=== PATIENT | male | born 1965 | race Caucasian/White ===

== ENCOUNTER 2017-11-15 06:57 | Observation (INO) | payer OTHER ==
[~2017-11-15] VITALS: Ht 177.8 cm; Wt 90.7 kg
--- NOTE | 2017-11-15 07:20 | ED GENERAL ADULT ---
See Addendum History of Present Illness General Chief Complaint: Abdominal Pain/Flank Pain Stated Complaint: PER PT IN EXTERME ABD PAIN ? KIDNEY STONE NO HX Source: patient Exam Limitations: clinical condition Vital Signs & Intake/Output Vital Signs & Intake/Output Vital Signs Date Time Temp Pulse Resp B/P B/P Pulse O2 O2 Flow FiO2 Mean Ox Delivery Rate 11/15 1033 97.5 73 20 180/105 96 Room Air 11/15 0837 98.0 95 20 164/104 95 Room Air 11/15 0726 194/118 11/15 0715 98.0 74 20 198/111 Room Air Allergies Coded Allergies: No Known Allergies (11/15/17) Reconcile Medications No Known Home Medications Triage Note: PT TO ED C/O SUDDEN ONSET OF LOWER ABD PAIN, TESTICLE PAIN AND LOW BACK PAIN SINCE THIS AM. PT PALE, DIAPHORETIC, WRITHING IN PAIN. DR GUTIERREZ IN FOR EVAL. Triage Nurses Notes Reviewed? yes HPI: Patient is a 52-year-old male with no significant past medical or surgical history who presents today with severe and acute onset left-sided flank pain. Upon my initial encounter the patient is writhing around on the hospital [facility], unable to find a position of comfort, clearly in severe distress. He indicates his left CVA region as the area of worst pain, and reports that it radiates around in a ureteral distribution toward the left lower quadrant and into the bilateral testicles, which he feels are "being ripped off." He denies any history of ureterolithiasis, or any known aortic disease. Past History Travel History Traveled to [place] past 21 day No Medical History Any Pertinent Medical History? none Surgical History Surgical History: none Psychosocial History What is your primary language [place] Island[place] Tobacco Use: Never used ETOH Use: denies use Illicit Drug Use: denies illicit drug use Family History Hx Contributory? No Review of Systems Review of Systems Constitutional: Reports: see HPI. EENTM: Reports: no symptoms. Respiratory: Reports: no symptoms. Cardiovascular: Reports: no symptoms. GI: Reports: abdominal pain. Genitourinary: Reports: no symptoms. Musculoskeletal: Reports: back pain. Skin: Reports: no symptoms. Neurological/Psychological: Reports: no symptoms. Hematologic/Endocrine: Reports: no symptoms. Immunologic/Allergic: Reports: no symptoms. All Other Systems: Reviewed and Negative Physical Exam Physical Exam General Appearance: well developed/nourished, alert, awake, severe distress Comments: HEENT: Inspection of the head reveals a normocephalic cranium with no signs of trauma. Ophtho: Extraocular muscles are intact and pupils are equal and reactive to light bilaterally with no afferent pupillary defect. The sclera are noninjected , and there is no obvious discharge. Neck: The trachea is midline, there is no obvious asymmetry or mass over the thyroid, and there is no midline cervical spine tenderness Respiratory: The lungs are clear and equal to auscultation bilaterally without wheezes, rales, or rhonchi. The patient exhibits no signs of labored breathing. Cardiac: Regular rhythm and non-tachycardic without appreciable murmurs on auscultation. No obvious JVD. GI: Abdominal examination reveals severe left CVA region tenderness radiating around in a ureteral distribution toward the left lower quadrant. There is negative Johnson's sign, negative McBurney's point tenderness, negative Sharon sign, negative Duncan-Ramirez sign, and no signs of peritonitis whatsoever on percussion or deep palpation. The skin is intact with no sign of trauma or infection. Back: Left-sided CVA region pain. : Normal external male genitalia, but with subjective sensation of severe testicular pain, left greater than right. There is only mild pain on direct palpation of the left testicle, without transverse lie, scrotal erythema, or other visible abnormality. Neuro: The patient is oriented to person, place, time, and situation, with no obvious focal motor deficits. There were no sensory deficits, and the patient exhibit purposeful movement of all 4 extremities. Cranial nerves II through XII are intact, and gait is normal. Behavioral: Severely anxious regarding his symptoms, unable to find position of comfort. Dermatologic: Dermatologic examination reveals no diffuse rashes or exanthems, no petechiae, no ecchymoses, and no other signs of erythema or infection. Core Measures ACS in differential dx? Yes CVA/TIA Diagnosis: No Sepsis Present: No Sepsis Focused Exam Completed? No Progress Differential Diagnoses I considered the following diagnoses in my evaluation of the patient: Ureterolithiasis, hydronephrosis, AAA, aortic dissection, intra-abdominal sepsis , bowel perforation, acute coronary syndrome, MS, among multiple other possible etiologies. Plan of Care: Orders Procedure Date/time Status Regular Diet 11/[address] in observation 11/15 120 Active ED Holding Orders 11/15 120 Active Code Status 11/15 120 Active EKG 11/15 0942 Active EKG 11/15 07 Active URINALYSIS 11/15 07 Complete COMPREHENSIVE METABOLIC PANEL 11/15 07 Complete CBC WITHOUT DIFFERENTIAL 11/16 707 Complete Laboratory Tests 11/15/17 1100: Urine Color YEL, Urine Clarity CLEAR, Urine pH 6.5, Ur Specific [place] 1.020, Urine Protein NEG, Urine Ketones NEG, Urine Nitrite NEG, Urine Bilirubin NEG, Urine Urobilinogen 0.2, Ur Leukocyte Esterase NEG, Ur Microscopic SEDIMENT EXAMINED, Urine RBC 1-3, Urine WBC 3-5 H, Ur Epithelial Cells OCCAS, Hyaline Casts RARE H, Urine Mucus FEW, Urine Hemoglobin TRACE-INTACT H, Urine Glucose NEG 11/15/17 0715: Anion Gap 15, Estimated GFR > 60, BUN/Creatinine Ratio 17.8, Glucose 133 H, Calcium 9.9, Total Bilirubin 0.5, AST 31, ALT 53, Alkaline Phosphatase 80, Total Protein 7.3, Albumin 4.4, Globulin 2.9, Albumin/Globulin Ratio 1.5, CBC w Diff NO MAN DIFF REQ, RBC 5.48, MCV 85.7, MCH 28.8, MCHC 33.5, RDW 14.0, MPV 8.8, Gran % 48.7, Lymphocytes % 39.6, Monocytes % 7.8, Eosinophils % 3.6, Basophils % 0.3, Absolute Granulocytes 5.0, Absolute Lymphocytes 4.1 H, Absolute Monocytes 0.8 H, Absolute Eosinophils 0.4, Absolute Basophils 0 Initial ED EKG: normal axis, normal intervals, normal p-waves, normal QRS complex, normal sinus rhythm, no ST T wave changes Comments: Patient presented with left sided flank pain which seemed consistent with ureterolithiasis. The patient had never had this diagnosis previously, we obtained a noncontrast CT which documented a small 1-2 mm left-sided UVJ stone as documented below. Unfortunately, his pain and nausea have been intractable throughout his multihour ED stay and discharge ultimately was not felt to be possible. Furthermore, he has had oliguria, only able to put out 15 mL of urine during his ED course, and bladder scan showed only 20 mL. IV fluid initiated. Patient will require IV fluids, repeat laboratory studies, and urology consultation. PATIENT: PARISA GUTIERREZ PRESENT AGE: 52 PATIENT ACCOUNT NO: [id number] : 64 LOCATION: [facility] ORDERING PHYSICIAN: Yuval Gutierrez DO SERVICE DATE: 11/15/17 EXAM TYPE: CAT - CT ABD & PELVIS W/O IV CONTRAS EXAMINATION: CT ABDOMEN AND PELVIS WITHOUT CONTRAST CLINICAL INFORMATION: Severe flank pain COMPARISON: None TECHNIQUE: Multidetector volumetric imaging was performed from the superior aspect of the liver through the pubic symphysis. Sagittal and coronal reformatted images were obtained on the technologist's workstation. DLP: 516 mGy-cm FINDINGS: LUNG BASES: The visualized lung bases are unremarkable. LIVER, GALLBLADDER, AND BILIARY TREE: The liver is normal in size, shape, and attenuation. No focal hepatic lesion or biliary ductal dilatation is present. The gallbladder is unremarkable with no evidence of radiopaque gallstones, gallbladder wall thickening, or obvious pericholecystic inflammatory changes. PANCREAS: Unremarkable. SPLEEN: Unremarkable. ADRENAL GLANDS: Unremarkable. KIDNEYS AND URETERS: There are a few punctate, 1 mm calculi in each kidney. There is mild left hydroureteronephrosis with a 1-2 mm calculus at the left ureterovesical junction. BLADDER: Unremarkable. GASTROINTESTINAL TRACT: Mild diverticulosis of the descending colon. No focal inflammatory process or obstruction. Normal appendix. ABDOMINAL WALL: No significant hernia is appreciated. LYMPH NODES: Normal. VASCULAR: Unremarkable. PELVIC VISCERA: Unremarkable. OSSEOUS STRUCTURES: Unremarkable. IMPRESSION: Punctate, 1-2 mm calculus at the left ureterovesical junction with minimal hydroureteronephrosis. There are a few tiny (1 mm) calculi in each kidney. Mild colonic diverticulosis. DICTATED BY: Yuval Wallace MD DATE/TIME DICTATED:11/15/17804 SOFTWARE DEVELOPER:REBECCA DATE/TIME TRANSCRIBED:11/15/17804 CONFIDENTIAL, DO NOT COPY WITHOUT APPROPRIATE AUTHORIZATION. <Electronically signed in Other Vendor System> SIGNED BY: Yuval Wallace MD 0820 Departure Departure Time of Disposition: 1203 Disposition: STILL A PATIENT Condition: Stable Clinical Impression Primary Impression: Kidney stone on left side Departure Forms: Customer Survey General Discharge Information Prescriptions: Current Visit Scripts No Known Home Medications Observation Note Spoke With: Sandra MARIA,Abdulkadir Physician Advisor Notified: LACEY GIBSON DO Place Patient In: Non-ED OBS Care Area Rationale for Observation: My rational for observation is as follows patient has a left-sided kidney stone which is expected to pass nonoperatively. However, his pain and nausea have been intractable and it has become clear that outpatient management is not possible. I prescribed him 5 separate dosages of narcotic medications well spaced, as well as a dosage of ketorolac, with antiemetics each time. I reassessment, the patient continues to retch and vomit even when attempting to sit up. His pain returns after each dosage. I feel he requires hospitalization for intractable pain and vomiting. Furthermore, he has made only 20 mL of urine on bladder scan and has been unable to urinate more than 15 mL. IV fluids and repeat laboratory studies needed to observe for possible acute kidney injury. Critical Care Note Critical Care Note Critical Care Time: non-applicable
[2017-11-15 07:32] LABS: ABSOLUTE BASOPHIL COUNT 0 /CUMM (0.0-0.2); ABSOLUTE EOSINOPHIL COUNT 0.4 /CUMM (0.0-0.7); ABSOLUTE LYMPH COUNT 4.1 /CUMM (1.2-3.4); ABSOLUTE MONOCYTE COUNT 0.8 /CUMM (0.10-0.60); BASOPHIL % 0.3 % (0.0-2.0); EOSINOPHIL % 3.6 % (0-5); GRANULOCYTE % 48.7 % (42.2-75.2); MEAN CORPUSCULAR HGB 28.8 PG (27.0-31.0); MEAN CORPUSCULAR HGB CONC 33.5 G/DL (33.0-37.0); MEAN CORPUSCULAR VOLUME 85.7 FL (80.0-94.0); MEAN PLATELET VOLUME 8.8 FL (7.4-10.4); PLATELET COUNT 325 /CUMM (130-400); RED BLOOD CELL CT 5.48 /CUMM (4.70-6.10); WHITE BLOOD CELL COUNT 10.3 /CUMM (4.8-10.8)
--- NOTE | 2017-11-15 08:20 | CT SCAN REPORT ---
EXAMINATION: CT ABDOMEN AND PELVIS WITHOUT CONTRAST CLINICAL INFORMATION: Severe flank pain COMPARISON: None TECHNIQUE: Multidetector volumetric imaging was performed from the superior aspect of the liver through the pubic symphysis. Sagittal and coronal reformatted images were obtained on the technologist's workstation. DLP: 516 mGy-cm FINDINGS: LUNG BASES: The visualized lung bases are unremarkable. LIVER, GALLBLADDER, AND BILIARY TREE: The liver is normal in size, shape, and attenuation. No focal hepatic lesion or biliary ductal dilatation is present. The gallbladder is unremarkable with no evidence of radiopaque gallstones, gallbladder wall thickening, or obvious pericholecystic inflammatory changes. PANCREAS: Unremarkable. SPLEEN: Unremarkable. ADRENAL GLANDS: Unremarkable. KIDNEYS AND URETERS: There are a few punctate, 1 mm calculi in each kidney. There is mild left hydroureteronephrosis with a 1-2 mm calculus at the left ureterovesical junction. BLADDER: Unremarkable. GASTROINTESTINAL TRACT: Mild diverticulosis of the descending colon. No focal inflammatory process or obstruction. Normal appendix. ABDOMINAL WALL: No significant hernia is appreciated. LYMPH NODES: Normal. VASCULAR: Unremarkable. PELVIC VISCERA: Unremarkable. OSSEOUS STRUCTURES: Unremarkable. IMPRESSION: Punctate, 1-2 mm calculus at the left ureterovesical junction with minimal hydroureteronephrosis. There are a few tiny (1 mm) calculi in each kidney. Mild colonic diverticulosis.
--- NOTE | 2017-11-15 12:17 | History & Physical ---
Rafaela Deng MD 11/15/17 1214: General Information and HPI MD Statement: I have seen and personally examined PARISA WILLIAM and documented this H&P. The patient is a 52 year old M who presented with a patient stated chief complaint of [abdominal pain]. Source of Information: patient, old records, EMS Exam Limitations: no limitations History of Present Illness: Patient is a 52 YO M with PMH significant for HTN on life style modifications presented to [facility] with left flank pain radiating to the left groin and testicles starting this morning. Patient woke up this am at 4:30PM, able to urinate and started experiencing pain. After some time he started trying to be again where he experiences significant pain radiating from his left flank to the left groin and to the testicles. He was unable to urinate and unable to walk from the restroom back he came to ER for further evaluation. Only past history significant for hypertension briefly was on antihypertensives and then discontinued and continued to be on lifestyle modifications. Not following up actively with any primary care physician. Used to follow-up with Dr. 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 Home Who Do You Live With? spouse Services at Home: None Smoking Status: Never Smoked ETOH Use: denies use Illicit Drug Use: denies illicit drug use Functional Ability ADLs Independent: dressing, eating, toileting, bathing. Ambulation: independent IADLs Independent: shopping, housework, finances, food prep, telephone, transportation , medication admin. Review of Systems Review of Systems Constitutional: Reports: see HPI. EENTM: Reports: see HPI. Exam & Diagnostic Data Last 24 Hrs of Vital Signs/I&O Vital Signs Date Time Temp Pulse Resp B/P B/P Pulse O2 O2 Flow FiO2 Mean Ox Delivery Rate 11/15 1428 98.1 70 20 150/90 96 Room Air 11/15 1339 172/104 11/15 1311 97.5 73 20 180/120 11/15 1257 97.5 73 20 180/105 11/15 1240 97.5 73 20 180/105 11/15 1230 98.0 65 20 180/120 96 Room Air 11/15 1033 97.5 73 20 180/105 96 Room Air 11/15 0837 98.0 95 20 164/104 95 Room Air 11/15 0726 194/118 11/15 0715 98.0 74 20 198/111 Room Air Intake & Output 11/15 1600 11/15 0800 11/15 0000 Intake Total Output Total 20 Balance -20 Output, Urine 20 Patient 90.718 kg Weight Weight Estimated Measurement Method Physical Exam General Appearance Alert, Oriented X3, Cooperative, No Acute Distress Skin No Rashes, No Breakdown Skin Temp/Moisture Exam: Warm/Dry Sepsis Skin Exam (color): Normal for Ethnicity HEENT Atraumatic, PERRLA, EOMI Neck Supple, No JVD Cardiovascular Regular Rate, Normal S1, Normal S2 Lungs Clear to Auscultation, Normal Air Movement Abdomen Normal Bowel Sounds, tenderness in the left costovertebral angle all the way to the left groin, distended abdomen Neurological Normal Gait, Normal Speech, Strength at 5/5 X4 Ext, Normal Tone Extremities No Clubbing, No Cyanosis, No Edema Vascular Normal Pulses, Pulses Symmetrical Last 24 Hrs of Labs/Lalit: Laboratory Tests 11/15/17 1100: Urine Color YEL, Urine Clarity CLEAR, Urine pH 6.5, Ur Specific [place] 1.020, Urine Protein NEG, Urine Ketones NEG, Urine Nitrite NEG, Urine Bilirubin NEG, Urine Urobilinogen 0.2, Ur Leukocyte Esterase NEG, Ur Microscopic SEDIMENT EXAMINED, Urine RBC 1-3, Urine WBC 3-5 H, Ur Epithelial Cells OCCAS, Hyaline Casts RARE H, Urine Mucus FEW, Urine Hemoglobin TRACE-INTACT H, Urine Glucose NEG 11/15/17 0715: Anion Gap 15, Estimated GFR > 60, BUN/Creatinine Ratio 17.8, Glucose 133 H, Hemoglobin A1c 5.9 H, Uric Acid 6.3, Calcium 9.9, Total Bilirubin 0.5, AST 31, ALT 53, Alkaline Phosphatase 80, Total Protein 7.3, Albumin 4.4, Globulin 2.9, Albumin/Globulin Ratio 1.5, CBC w Diff NO MAN DIFF REQ, RBC 5.48, MCV 85.7, MCH 28.8, MCHC 33.5, RDW 14.0, MPV 8.8, Gran % 48.7, Lymphocytes % 39.6, Monocytes % 7.8, Eosinophils % 3.6, Basophils % 0.3, Absolute Granulocytes 5.0, Absolute Lymphocytes 4.1 H, Absolute Monocytes 0.8 H, Absolute Eosinophils 0.4, Absolute Basophils 0 Diagnostic Data EKG Results Normal sinus rhythm Assessment/Plan Assessment: Patient is a 52 YO M with PMH significant for HTN on life style modifications presented to [facility] with left flank pain radiating to the left groin and testicles starting this morning. Vital signs at presentation is significant for blood pressure 198/triple on mmHg, heart rate 74. Physical examination did show tenderness in the left flank region radiating to his left groin and distended abdomen. Patient is rather lethargic secondary to pain medications. Labs are unremarkable. Urinalysis did show white count of 3-5, positive trace hemoglobin. CT imaging did show 1-2 mm calculus at the left ureteropelvic junction with minimal hydroureteronephrosis. Tiny calculi in each kidney. New onset Renal stones in a patient with decreased fluid intake in general. Placed in observation and gentamicin for Problem list 1. Nonobstructive nephrolithiasis with intractable pain and nausea 2. Hypertension Plan * IV fluids with normal saline @75ml/hr * Urine culture and urinalysis * IV antiemetics * Monitor urine output for the first 24 hours * If continues to have pain and unable to pass the stone in the next 24 hours might qualify for cystoscopy * Urology consult * A dose of IV metoprolol given in ER, continue 5 mg of amlodipine for blood pressure. * Monitor blood pressure * Pain management with Tylenol, IV ketorolac and IV morphine * DVT prophylaxis with subcutaneous heparin * full code As Ranked By This Provider Problem List: 1. Kidney stone on left side Core Measures/Misc (02/03) Acute Coronary Syndrome ACS Diagnosis: No Congestive Heart Failure Congestive Heart Failure Diagnosis No (her) Cerebrovascular Accident CVA/TIA Diagnosis: No VTE (View Protocol) VTE Risk Factors Acute Medical Illness No Mechanical VTE Prophylaxis d/t N/A MechProphylax Ordered No VTE Pharm Prophylaxis d/t NA PharmProphylax ordered (cellulitis left) Sepsis (View protocol) Sepsis Present: No If YES complete Sepsis Event Note If YES complete Sepsis Event Note Resident Review Statement Resident Statement: examined this patient, discussed with electrical engineering intern, agreed with electrical engineering intern, discussed with family, reviewed EMR data (avail), discussed with nursing , discussed with case mgmt, reviewed images, amended to note Other Findings: as above Phong Allison MD 11/15/172022: General Information and HPI Allergies/Medications Home Med list Ibuprofen 600 MG TABLET 1 TAB PO TID PRN pain with food Ondansetron (Zofran Odt) 4 MG TAB.RAPDIS 1 TAB SL Q6 PRN NAUSEA/VOMITING Oxycodone HCl/Acetaminophen (Percocet 5-325 MG Tablet) 5 MG-325 MG TABLET 1 TAB PO Q6P PRN pain Tamsulosin HCl (Flomax) 0.4 MG CAP.ER.24H 0.4 MG PO DAILY URINARY OBSTRUCTION Tamsulosin HCl (Flomax) 0.4 MG CAP.ER.24H 1 CAP PO DAILY KIDNEY STONE Core Measures/Misc (02/03) Sepsis (View protocol) If YES complete Sepsis Event Note If YES complete Sepsis Event Note Attending MD Review Statement Attending Statement Attending MD Statement: examined this patient, discuss w/resident/PA/MERGERS AND ACQUISITIONS CONSULTANT, agreed w/resident/PA/MERGERS AND ACQUISITIONS CONSULTANT, reviewed EMR data (avail), discussed with nursing, discussed with case mgmt, reviewed images, amended to note Attending Assessment/Plan: MEDICAL CONSULT IN ED OBSERVATION The patient is 52 yo male with h/o borderline HTN in the past (was followed by Dr. Arnett in [place]- not seen recently) who presented in the [facility] ED with c/ o left flank pain and was found to have a 1-2 mm distal left UJ renal stone. His BP was noted to be elevated significantly and he was given IV Metoprolol. He also c/o nausea and vomiting (prior to administration of narcotic). He received multiple doses of meds (Dilaudid and Morphine, Ketolorac, Zofran) and was felt to need observation admission initially due to persistent pain. He states he was having difficulty urinating. No h/o nephrolithiasis in the past. He does not decreased fluid intake last couple of days. Dr. Villanueva was contacted to consult and observation inhouse was suggested. While in ED the patient noted pain improved significantly and he wished to go home (?passed stone). Physical Exam: VS: T 98.0, P 74, R 20, BP 198/111-150/90, PO 96% RA HEENT: eyes- PERRLA, EOMI alvaro- dry mucosa Neck: no adenopathy, -bruits, -JVD Chest: clear Cor: RRR nl S1, S2 w/o murm Abd: BS+, soft, NT; + Left CVA tenderness Ext: no edema, pulses 2+ Neuro: slightly sedated secondary to narcotics, however alert & oriented x3 with non-focal exam Labs/Tests- as above Impression/Plan: #Nephrolithiasis- with Left Ureterovesical Junction Obstruction (L-UVJ). Stone is distal. No h/o stones previously. Plan: Initially intended to bring in for observation, however ? pain improved and probably passed stone in ED. OK to discharge to home and follow-up with Urology (Dr. Villanueva). Screen urines and return stone to urology if detected. OP evaluation for stones (has a stone non-obstructing in kidney). Maintain hydration. Percocet for mild residual pain. #HTN- BP became more significantly elevated during episode of severe pain. Initially patient had nausea and could not give po med and received IV Metoprolol 2.5 mg x 1. Also received Amlodipine when able to take po. The patient had been transiently on an anti-hypertensive prescribed by his PCP in [place] (Dr. Arnett), however discontinued when his BP improved with lifestyle modifications. BP came down after pain improved. Plan: Patient advised to monitor his BP at home and follow-up with PCP. Suspect he may need low-dose anti-hypertensive. #Difficulty Urinating- patient describes hesitancy and some difficulty with stream. Suspect some degree of BPH. Was started on Tamsulosin in ED. Plan: Continue Tamsulosin and follow-up with Urology. #Gastritis- patient with acute nausea and vomiting, most likely secondary to pain from stone. Resolved. He did receive Zofran. Plan: Zofran prn.
[2017-11-15] MEDS ORDERED: FLOMAX0.4 M1 PO ×2 (15:46→16:18)
[2017-11-15 16:07] VITALS: BP 160/80
[2017-11-15] MEDS ORDERED: IBUPROFEN600 M1 PO (16:11)
[2017-11-15] MEDS ORDERED: ZOFRAN ODT4 M1 SL (16:18)
[2017-11-15] MEDS ORDERED: PERCOCET 5-3251 EACH PO (16:18)
== END 2017-11-15 16:25 ==
LOC: ERH 06:57 → ERHI 12:02 → EDBEDREQ 12:25 → CANRESERV 13:00 → ENRESERV 13:00 → DELTRNSPT 13:55 → ENTRNSPT 13:55 → EDTRNSPTSTS 14:49 → EDTRNSPT 14:49 → ERHI 16:20 → CMPTRNSPT 16:53
PROVIDERS: Student in an Organized Health Care Education/Training Program
DX: N20.0 Calculus of kidney (principal); I10 Essential (primary) hypertension; R11.2 Nausea with vomiting, unspecified; R39.11 Hesitancy of micturition
CPT/HCPCS: 74176; 81001; 87086; 93005; 93010; 96361; 96374; 96375; 96376; G0378; J1644; J1885; J2405; J2550